=== PATIENT | female | born 1965 | race Caucasian/White ===

== ENCOUNTER 2017-05-20 10:50 | Inpatient (IN) ==
[2017-05-20] MEDS ORDERED: MORPHINE IV PRN (14:26)
[2017-05-20] MEDS: NS 1,000 ML IV SCH (14:49)
[2017-05-20] MEDS ORDERED: VANCOMYCIN IV PER PHARMACY MISC SCH (15:00)
[2017-05-20] MEDS ORDERED: DECADRON IV SCH (15:15)
--- NOTE | 2017-05-20 15:38 | HISTORY AND PHYSICAL ---
PCP: Dr. Karina Mckinney. ORAL SURGEON: Dr. Simmons. CHIEF COMPLAINT: Jaw swelling. HISTORY OF PRESENT ILLNESS: Mrs. Fischer is a 52-year-old female with a history of chronic bronchitis and fibromyalgia, also with a history of a borderline diabetes mellitus who is sent from [facility] with profound left mandibular swelling. The patient had a tooth extraction done by Dr. Simmons on Sunday, she was given antibiotics and pain medication and sent home. Since that time though left lower jaw has been swelling significantly with severe pain. The patient called Dr. Simmons's office apparently and was told to stopped taking the medication as it could be felt that there was an allergic reaction to the medication. She went to [facility] this morning and a call was put in to us to transfer her to our facility because of the severity of the swelling. A CT done there did not show any abscess however this was a noncontrasted CT. When the patient arrived to [facility] it was quite obvious that she had profound edema of the left lower jaw and she was beginning to complain of some mild shortness of breath. History is difficult to obtain because of the patient's level of swelling in her jaw. Her family at the bedside is able to help with history. We have ordered stat labs and we are going to check a CT of the head and neck with contrast to evaluate for abscess. We have put a call into Dr. Simmons's office as he is vision specialist for oral surgery today. We are also going to transfer her to the ICU and place her on IV steroids for inflammation reduction. Currently she is hemodynamically stable and we are going to transfer her to the ER for further treatment and evaluation. PAST MEDICAL HISTORY: 1. Recent tooth extraction. 2. Chronic bronchitis. 3. Morbid obesity. 4. History of breast cancer. 5. Hyperlipidemia. 6. Borderline diabetes. 7. Fibromyalgia. SURGICAL HISTORY: Recent tooth extraction, left mastectomy, tonsils and adenoids, eustachian tubes as child. SOCIAL HISTORY: Patient denies tobacco, alcohol or drug use. She is . at the bedside. FAMILY HISTORY: Noncontributory. REVIEW OF SYSTEMS: Difficult to obtain. The patient denies at this time any chest pain, any abdominal pain, nausea, vomiting, or diarrhea. Otherwise a 14 point review of systems obtained and found to be negative with the exception of the HPI. HOME MEDICATIONS: Currently being compiled. ALLERGIES: To azithromycin, clarithromycin, doxycycline, Medrol, sulfa, amoxicillin, Augmentin, plastic Band-Aid. We asked her about her allergy to Medrol. She said she does not really have an allergy to steroids. She is unclear why that is on the list. PHYSICAL EXAMINATION: VITAL SIGNS: Blood pressure is 122/39, heart rate is 84, respiratory rate 20, O2 saturation 100% on room air, temperature is 98.7 degrees. GENERAL: Morbidly obese female lying in hospital bed in mild distress. NEUROLOGIC: The patient is oriented and follows commands without focal deficits. HEENT: Patient has profound edema of the left lower jaw. There is also ecchymoses noted about the jaw. Oral mucosa is moist and overall oral airway is difficult to assess as patient cannot open her mouth. Pupils are equal, round, reactive to light. CHEST: Clear to auscultation bilaterally. There is no wheezing. CV: Regular rate and rhythm. S1-S2 is noted. No murmurs. GI: Soft, nondistended. Bowel sounds are hypoactive. EXTREMITIES: Without edema, clubbing or cyanosis. Pulses are palpable bilaterally. DIAGNOSTIC DATA: Pending. ASSESSMENT/PLAN: 1. Presumed abscess of the left mandible status post tooth extraction: We are going to re CT the patient with contrast. Will order face and neck. We are going to give her IV steroids and broad-spectrum antibiotics including meropenem and vancomycin. Will consult Dr. Lucas as well. We are going to move her the ICU for close airway monitoring. We have also ordered blood cultures and comprehensive lab studies. Will check a chest x-ray as well. 2. Bronchitis: Patient's lungs are clear. Ordered a chest x-ray. We are going to put her on O2 and monitor. 3. Borderline diabetes mellitus: We are going to check a hemoglobin A1c and put her on sliding scale insulin and pattern blood sugars. 4. Deep vein thrombosis prophylaxis will be provided with SCDs and TEDs given the possibility of surgery. Of note, we have placed a call to Dr. Simmons's office and are awaiting a call back. Dictated by CNOY Sanchez for Marta Tucker MD cc: CONY Sanchez MD The patient was seen and examined by me. I agree with the assessment and plan as dictated. MTDD
[2017-05-20 15:44] LABS: BASO% 0.3 % (0.0-0.8); HEMATOCRIT 38.4 % (37.0-47.0); HEMOGLOBIN 12.5 g/dL (12.0-16.0); IMM GRAN# 0.04 X1000 (0.0-0.04); IMM GRAN% 0.3 % (0.0-0.5); LYMPH# 0.66 X1000 (1.2-3.4); LYMPH% 5.6 % (20.5-51.1); MANUAL DIFF NEEDED? NO; MCH 27.7 PG (27-31); MCHC 32.6 g/dL (33-37); MONO# 0.96 X1000 (0.11-0.59); MONO% 8.2 % (1.7-9.3); MPV 12.3 FL (7.4-10.4); NEUT% 85.6 % (42.2-75.2); PLT 147 X1000 (130-400); RBC 4.52 XMIL (4.2-5.4)
[2017-05-20 15:53] LABS: INR 1.03; PROTIME 10.8 Seconds (9.2-11.7)
[2017-05-20 16:06] LABS: AGAP 13; ALBUMIN 3.6 g/dL (3.5-5.0); ALKALINE PHOSPHATASE 84 U/L (32-104); BUN 13 mg/dL (8-22); CALCIUM 8.7 mg/dL (8.8-10.2); CHLORIDE 102 mmol/L (98-107); COSMO 279; GOT 16 U/L (10-30); GPT 13 U/L (10-36); MAGNESIUM 1.9 mg/dL (1.5-2.7); SODIUM 140 mmol/L (136-145); TCO2 25 mmol/L (25-35); TOTAL BILIRUBIN 0.36 mg/dL (0.20-1.00); TOTAL PROTEIN 6.4 g/dL (6.3-8.3)
[2017-05-20] MEDS: HUMALOG SUBQ SCH ×2 (16:07→21:39)
[2017-05-20] MEDS ORDERED: ZOFRAN IV PRN (16:09)
[2017-05-20 16:34] LABS: HEMOGLOBIN A1C 5.5 % (4.8-6.0)
--- NOTE | 2017-05-20 17:05 | Diag Imaging Result Doc PS360 ---
EXAM: FACIAL BONES W/CONTRAST HISTORY: facial cellulitis TECHNIQUE: CT face with contrast. COMPARISON: None. FINDINGS: No sinus opacification. No air-fluid levels. There is prominent left facial soft tissue swelling. Enlarged left masseter muscle with a poorly defined complex area measuring approximately 2.3 x 4.0 cm. No air within this. Subcutaneous edema is present. No bony abnormality. There is also prominence to the medial pterygoid muscle. Oral pharyngeal region is deviated to the right. There are multiple prominent lymph nodes scattered in the neck on the left with mildly prominent lymph nodes on the right. The largest node lies just beneath the left mandible measuring over 2 cm. IMPRESSION: Suspect cellulitis and early abscess formation involving the medial pterygoid and masseter muscles on the left. Electronically signed by Agustin Hampton 05/20/2017 5:02 PM
--- NOTE | 2017-05-20 17:07 | Diag Imaging Result Doc PS360 ---
EXAM: NECK W/CONTRAST HISTORY: facial cellulitis TECHNIQUE: COMPARISON: None. FINDINGS: There is enlargement to the left masseter muscle and medial pterygoid muscle. The airway is displaced to the right. Prominent subcutaneous edema and inflammation. Poorly defined multiloculated cystic-appearing area within the left masseter muscle measuring approximately 2 x 4 cm. Edema and deviation of the airway to the right extends inferiorly to the level of the hyoid. There are multiple mildly prominent lymph nodes scattered bilaterally within the neck. No definite laryngeal abnormality. Normal thyroid. The upper lungs are clear. IMPRESSION: Findings suspicious for cellulitis and early abscess formation involving the left masseter and medial pterygoid muscles. Electronically signed by Agustin Hampton 05/20/2017 5:05 PM
--- NOTE | 2017-05-20 17:08 | Diag Imaging Result Doc PS360 ---
EXAM: CHEST-2 VIEWS HISTORY: hypoxia TECHNIQUE: Sitting AP COMPARISON: 08/05/2015 FINDINGS: The lungs are well expanded. The heart is not enlarged. The vessels are not distended. There are no infiltrates. No pleural effusions. IMPRESSION: No acute abnormality. Electronically signed by Agustin Hampton 05/20/2017 5:06 PM
[2017-05-20] MEDS: MERREM 1 GM in NS 50 ML IV SCH ×2 (17:11→23:58)
[2017-05-20] MEDS ORDERED: VANCOMYCIN 2,000 MG in NS 500 ML IV ONE (18:00)
[2017-05-20] MEDS: DILAUDID IV PRN ×2 (18:23→21:47)
[2017-05-20] MEDS: BENADRYL IV SCH (19:42)
[2017-05-20] MEDS: PEPCID IV SCH (21:47)
[2017-05-20] MEDS: SODIUM CHLORIDE 0.9% INJ SCH (21:47)
[2017-05-20] MEDS: DECADRON IV SCH (22:15)
[2017-05-21] MEDS: DILAUDID IV PRN ×6 (01:24→21:12)
[2017-05-21] MEDS: BENADRYL IV SCH ×3 (02:32→18:07)
[2017-05-21] MEDS: NS 1,000 ML IV SCH ×2 (02:33→06:05)
[2017-05-21 04:40] LABS: HEMATOCRIT 34.6 % (37.0-47.0); HEMOGLOBIN 11.2 g/dL (12.0-16.0); MCH 27.7 PG (27-31); MCHC 32.4 g/dL (33-37); MCV 85.6 FL (81-99); MPV 12.5 FL (7.4-10.4); RBC 4.04 XMIL (4.2-5.4)
[2017-05-21] MEDS: VANCOMYCIN 1,500 MG in NS 250 ML IV SCH ×2 (04:59→17:27)
[2017-05-21 05:09] LABS: AGAP 15; BUN 10 mg/dL (8-22); CALCIUM 8.1 mg/dL (8.8-10.2); CHLORIDE 100 mmol/L (98-107); COSMO 276; POTASSIUM 4.3 mmol/L (3.5-5.1); SODIUM 138 mmol/L (136-145); TCO2 23 mmol/L (25-35)
[2017-05-21] MEDS: DECADRON IV SCH ×3 (06:05→23:11)
[2017-05-21] MEDS: HUMALOG SUBQ SCH ×4 (06:14→20:06)
[2017-05-21] MEDS: MERREM 1 GM in NS 50 ML IV SCH ×3 (07:45→23:11)
[2017-05-21] MEDS: PEPCID IV SCH ×3 (07:54→20:10)
[2017-05-21] MEDS ORDERED: FENTANYL ONE (11:59)
[2017-05-21] MEDS ORDERED: DIPRIVAN 1% ONE (12:00)
[2017-05-21] MEDS ORDERED: XYLOCAINE-MPF 2% ONE (12:02)
[2017-05-21] MEDS ORDERED: QUELICIN (DOSE) ONE (12:02)
[2017-05-21] MEDS ORDERED: NORCURON ONE (12:02)
[2017-05-21] MEDS ORDERED: SODIUM CHLORIDE 0.9% 10 ML ONE ×2 (12:02→12:20)
[2017-05-21] MEDS ORDERED: PERIDEX MT ONE (12:15)
[2017-05-21] MEDS ORDERED: KETAMINE (DOSE) ONE (12:17)
[2017-05-21] MEDS ORDERED: VERSED ONE (12:17)
[2017-05-21] MEDS ORDERED: XYLOCAINE 1%/EPI 1:100,000 ONE (12:40)
[2017-05-21] MEDS ORDERED: MORPHINE ONE ×3 (13:16→13:49)
--- NOTE | 2017-05-21 16:41 | CONSULTATION ---
DATE OF CONSULTATION: 05/21/2017 CONCLUSION: Patient has a left-sided facial abscess and cellulitis. It seems that this is of odontogenic origin. The patient has, she says, allergy to Augmentin. Her allergy was vomiting and thus I think it probably was not actually an allergy as more as just an adverse reaction. RECOMMENDATIONS: I agree with placing the patient on meropenem in view of the patient's mini drug allergies. Also I agree with vancomycin. DISCUSSION: The patient approximately 6 days ago started developing swelling on the left side of her face. She also noticed it in the lower part of her jaw. She also developed trismus and she can barely get her mouth open. Also she has difficulty swallowing because she says is difficult for her to get even liquids down. LAB AND X-RAY: The patient's laboratory studies thus far show a CBC with a white count of 11,430, hemoglobin 11.2, and platelet count 132,000. Creatinine is 0.5. The GFR is greater than 60. The patient's chest x-ray shows no acute disease. CT scan of the face shows cellulitis and abscess formation on the left side. PAST MEDICAL HISTORY/REVIEW OF SYSTEMS: Eyes and ears: Patient denies difficulty hearing or seeing. Patient wears glasses. She does not have any trouble with hearing. The patient also has odynophagia. She also has a trismus. Face: The patient has swelling and pain on the left side. Also, she has trismus. Neck: No meningismus. No stiffness. Respiratory: Patient has been having some dyspnea for the past couple of days. She is not coughing. Cardiovascular: No chest pain or palpitations. GI: Patient has not had a stool in 2 days which is not real unusual for her. : No dysuria or flank pain. Bones, joints, muscles: No joint pain or muscle aches. Neurologic: No motor or sensory deficit. No seizure. No tremor. Integument: No rash. PHYSICAL EXAMINATION: Vital signs: Temperature 96.9 degrees, pulse 72, respirations 16, blood pressure 120/47. The patient's weight is listed as 247 pounds. Generally: This is an ill- appearing, middle-aged female. She does not appear to be in any acute distress. Head, eyes, ears, nose, and throat: There is marked swelling on the left side of her face. It is tender. She has trismus. No drainage noted from the nose or ears. Neck: No meningismus. Thorax: No increased AP diameter of the chest. Lungs: Clear to auscultation. Cardiovascular: Regular heart rate. Abdomen: Soft and nontender. Extremities: The patient has bilateral leg edema. Neurologic: Patient is alert. She can move her extremities. There is no tremor. Her sensation is intact to touch. Her memory, as regarding her medical history is intact. Integument: No rash noted. Thank you for the consult. cc: Nixon Lucas MD MTDD
--- NOTE | 2017-05-21 18:33 | PROGRESS NOTE ---
DATE: 05/21/2017 SUBJECTIVE: The patient is resting comfortably. She still has some facial swelling on the left side of her face but she is able to talk and open her mouth and she states that her breathing is better. OBJECTIVE: Vital Signs: Temperature 98.6 degrees, blood pressure 142/74, heart rate 65, respirations 24, O2 saturation is 100% on 4 L nasal cannula. General: This is a morbidly obese female, lying in bed, in no acute distress. Head: Normocephalic, atraumatic. Heart: S1, S2. Normal. Regular rate and rhythm. Lungs: Clear to auscultation bilaterally. No wheezing. No rales. No rhonchi. Abdomen: Positive bowel sounds. Soft, nontender, nondistended. Extremities: No edema. No cyanosis. No calf tenderness. Neurologic: The patient is alert and oriented x3. LABORATORY STUDIES: White blood cell count 11.4, hemoglobin 11, hematocrit 34, platelets 132,000. Sodium 138, potassium 4.3, chloride 100, CO2 23, BUN 10, creatinine 0.5, glucose 118, calcium 8.1. ASSESSMENT AND PLAN: 1. Facial cellulitis with abscess. The patient is scheduled to go to the OR today. Continue with broad-spectrum antibiotics, IV steroids, IV Pepcid, and IV Benadryl. 2. Leukocytosis. We will continue to treat the patient with IV antibiotic therapy monitor this closely. 3. Neuropathy. Aware. 4. Deep vein thrombosis prophylaxis. Continue with SCDs. 5. Gastrointestinal prophylaxis. Continue with Pepcid. cc: Marta Tucker MD
[2017-05-21] MEDS ORDERED: FLEBOGAMMA DIF 5% IV ONE (20:00)
[2017-05-22] MEDS: DILAUDID IV PRN ×4 (00:27→15:48)
[2017-05-22] MEDS: BENADRYL IV SCH ×3 (02:31→17:47)
[2017-05-22] MEDS: VANCOMYCIN 1,500 MG in NS 250 ML IV SCH ×2 (05:15→20:05)
[2017-05-22 05:28] LABS: HEMATOCRIT 33.1 % (37.0-47.0); HEMOGLOBIN 10.6 g/dL (12.0-16.0); MCH 27.2 PG (27-31); MCV 84.9 FL (81-99); MPV 12.4 FL (7.4-10.4); RBC 3.9 XMIL (4.2-5.4)
[2017-05-22 05:47] LABS: AGAP 9; BUN 15 mg/dL (8-22); CALCIUM 8.4 mg/dL (8.8-10.2); CHLORIDE 100 mmol/L (98-107); COSMO 273; POTASSIUM 4.2 mmol/L (3.5-5.1); SODIUM 135 mmol/L (136-145); TCO2 26 mmol/L (25-35)
[2017-05-22] MEDS: DECADRON IV SCH ×2 (06:03→18:44)
--- NOTE | 2017-05-22 06:12 | CONSULTATION ---
DATE OF CONSULTATION: 05/20/2017 REASON FOR CONSULTATION: Left facial abscess. HISTORY OF PRESENT ILLNESS: Ms. Fischer is a 52-year-old female, who was referred to my office on 05/18/2017 for evaluation of left facial abscess. She notes she has had the pain and swelling for approximately a week prior. It had been increasing in severity. She was seen at [facility] and prescribed antibiotics. She subsequently saw her general dentist, Dr. Harding, which referred her to me. At the time of the office visit, she had some mild left edema with slight erythema overlying the skin. There was no submandibular erythema or edema. Tooth #18 was with nonrestorable caries. Oropharynx was clear at that time with no lateral pharyngeal erythema or edema. She was subsequently sedated in my office with extraction #18 without complications. At that time, she was prescribed [place] and clindamycin 300 mg q.i.d. Over the next 2 days, she notes that the left facial pain and swelling subsequently increased, and she started developing some odynophagia with shortness of breath. She was subsequently seen at [facility] ED of which a CT scan was taken and showed a 2 x 4 mm fluid collection of a left masseteric space. At that time, she was admitted for IV antibiotics and further evaluation. PAST MEDICAL HISTORY: See history. PHYSICAL EXAMINATION: Facial examination with significant left buccal erythema and edema which has increased significantly over the past 2 days. The erythema is spreading to the submandibular region. There is significant tenderness to palpation. Intraorally, maximal incisal opening is approximately 5 mm. The oropharynx was unable to be examined secondary to trismus. ASSESSMENT: Left masseteric space abscess. PLAN: 1. To OR tomorrow for incision and drainage, left masseteric space abscess. 2. Patient was started on IV meropenem and vancomycin. cc: MD AUDREY Singletary
[2017-05-22] MEDS: HUMALOG SUBQ SCH ×4 (06:23→20:04)
--- NOTE | 2017-05-22 06:43 | OPERATIVE NOTE ---
PROCEDURE DATE: 05/21/2017 DIAGNOSIS: Left masseteric space abscess. PROCEDURE PERFORMED: Incision and drainage of left masseteric space abscess. SURGEON: Dr. Alton Simmons. ANESTHESIA: General endotracheal anesthesia. ESTIMATED BLOOD LOSS: 10 mL. CULTURES: Pending. COMPLICATIONS: None. DESCRIPTION OF PROCEDURE: Patient was taken to OR #9 and placed in the supine position. General anesthesia was induced with LMA. Patient was prepped and draped in the usual sterile fashion. Local anesthesia was administered to the submandibular region on the left side with 7 mL of 1% Xylocaine with 1:100,000 epinephrine. A 15 blade was then used to create an approximate 2 cm skin incision in a left submandibular skin crease. Incision carried through the skin and subcutaneous tissues. Hemostats were then bluntly used to dissect to the inferior border of the mandible. There was a significant loculation of purulence which was encountered. It was subsequently drained. The lateral and inferior borders of the mandible were swept. The incision site was then copiously irrigated with sterile saline. Cultures were taken. A 0.5 inch [place] was then inserted and secured to the skin with two 3-0 silk sutures. Then 4x4s were taped to the incision. The patient was subsequently awakened and extubated in the OR, and transferred to recovery in stable condition. All needle and sponge counts were correct. cc: Alton Simmons MD
[2017-05-22] MEDS: MERREM 1 GM in NS 50 ML IV SCH ×2 (07:34→15:50)
[2017-05-22] MEDS: PEPCID IV SCH ×2 (08:04→20:05)
--- NOTE | 2017-05-22 08:26 | CONSULTATION ---
DATE OF CONSULTATION: 05/21/2017 ADDENDUM: BUDGET COUNSELOR HISTORY: The patient is a 1, para 1, AB 0. PREVIOUS HOSPITALIZATIONS AND OPERATIONS: She has had a labor and delivery, a tonsillectomy, placement of ear tubes, a left-sided mastectomy, and a tubal ligation. MEDICAL DISEASES: Positive for breast cancer. INFECTIOUS DISEASE HISTORY: Negative for pneumonia and UTI, positive for bronchitis and otitis media. FAMILY HISTORY: Positive for diabetes mellitus, hypertension, stroke, myocardial infarction, and cancer. [place]IAL H[place]ORY[place] She has a cat, a dog, and goats for pets. ALLERGIES: She is allergic to azithromycin, clarithromycin, doxycycline, Medrol , sulfa, Augmentin, and plastic Band-Aids. HOME MEDICATIONS: Include Colace, lactobacillus, gabapentin, famotidine, BuSpar , thymol, meloxicam, Antivert, hydrocodone, Flexeril, and loratadine. cc: Nixon Lucas MD MTDD
[2017-05-22] MEDS: LOVENOX SUBQ SCH (17:47)
[2017-05-22] MEDS: SODIUM CHLORIDE 0.9% INJ SCH (20:06)
--- NOTE | 2017-05-22 21:42 | PROGRESS NOTE ---
DATE: 05/22/2017 PRESENT ILLNESS: The patient is status post left masseter space abscess incision and drainage. In addition to the to the infection, the patient has hypogammaglobulinemia. MEDICATIONS: The patient is receiving a combination of vancomycin and meropenem. PHYSICAL EXAMINATION: Vital Signs: Temperature is 98.6 degrees, pulse 69, respirations 18, blood pressure 132/66. General: This is a less ill-appearing middle-aged female. She is able to talk better today. She can open up her mouth better and she is able to tolerate liquids by mouth. Lungs: Clear to auscultation. Cardiovascular: Regular heart rate. Abdomen: Soft and nontender. Head, eyes, ears, nose, and throat: There is less swelling on the left side of the face. LAB AND X-RAY: There is no new x-ray. The creatinine is 0.5. GFR is greater than 60. The blood and abscess cultures are negative as mentioned above. CBC shows a white count of 10,760, hemoglobin 10.6, and platelet count 163,000. ASSESSMENT AND PLAN: Patient is status post drainage of a left masseter space abscess. The plan will be to continue with the patient's antibiotics until there is even less swelling and also there is less trismus. The patient also has been discovered to have a low IgG level. In a day or 2 I will repeat the level and if it is still very low I will give her another infusion of gammaglobulin. After the patient gets home in a few months I will repeat the patient's immunoglobulin levels and if they are still low then I think she may be a candidate for gammaglobulin infusion therapy on regular basis. COMORBIDITIES: The main one might be that she has hypogammaglobulinemia. She also has recently had breast cancer. cc: Nixon Lucas MD
[2017-05-23] MEDS: MERREM 1 GM in NS 50 ML IV SCH ×3 (00:32→16:16)
[2017-05-23] MEDS: BENADRYL IV SCH ×2 (02:27→11:02)
--- NOTE | 2017-05-23 03:44 | PROGRESS NOTE ---
DATE: 05/22/2017 SUBJECTIVE: The patient states that she feels a lot better today. She has less swelling on the left side of her face. She states that her pain is controlled. OBJECTIVE: Vital Signs: Temperature 98.6 degrees, blood pressure 132/66, heart rate 69, respirations 18, O2 saturations 94% on 3 L nasal cannula. General: This is a morbidly obese female lying in bed in no acute distress. Head: Normocephalic, atraumatic. Heart: S1, S2. Normal. Regular rate and rhythm. Lungs: Clear to auscultation bilaterally. Abdomen: Positive bowel sounds. Soft, nontender, nondistended. Extremities: No edema. No cyanosis. No calf tenderness. Neurologic: The patient is alert and oriented x3. LABS: White blood cell count 10, hemoglobin 10, hematocrit 33, platelets 163, 000. Sodium 135, potassium 4.2, chloride 100, CO2 26, BUN 15, creatinine 0.5, glucose 127, calcium 8.4. ASSESSMENT AND PLAN: 1. Status post incision and drainage of a left masseteric space abscess. Continue on the IV antibiotic regimen as directed by Dr. Lucas. Will follow up on the culture results. 2. Leukocytosis. Resolved. 3. Deep vein thrombosis prophylaxis. Will start the patient on Lovenox. 4. The patient is stable for transfer to the medical floor. cc: Marta Tucker MD MTDD
[2017-05-23 06:01] LABS: HEMATOCRIT 34.7 % (37.0-47.0); HEMOGLOBIN 11.2 g/dL (12.0-16.0); MCHC 32.3 g/dL (33-37); MCV 86.8 FL (81-99); MPV 12.3 FL (7.4-10.4)
[2017-05-23] MEDS: VANCOMYCIN 1,500 MG in NS 250 ML IV SCH ×2 (06:07→18:33)
[2017-05-23] MEDS: DECADRON IV SCH (06:07)
[2017-05-23] MEDS: HUMALOG SUBQ SCH ×4 (06:08→20:50)
[2017-05-23 06:30] LABS: AGAP 12; BUN 14 mg/dL (8-22); CALCIUM 8.3 mg/dL (8.8-10.2); CHLORIDE 102 mmol/L (98-107); COSMO 282; SODIUM 141 mmol/L (136-145); TCO2 27 mmol/L (25-35)
[2017-05-23] MEDS: PEPCID IV SCH ×2 (08:04→21:03)
[2017-05-23] MEDS: CULTURELLE PO SCH (08:05)
[2017-05-23] MEDS: SODIUM CHLORIDE 0.9% INJ SCH (08:05)
--- NOTE | 2017-05-23 12:57 | PROGRESS NOTE ---
DATE: 05/23/2017 INTERVAL HISTORY: Patient has been transferred to the floor and resting comfortably. Her pain is well controlled. She is tolerating a liquid diet. She is currently without complaints. PHYSICAL EXAMINATION: Vital signs: Afebrile. Vital signs stable. HEENT: Left buccal submandibular edema is continuing to decrease and become softer. Her trismus is improving. The left submandibular [place] with mild serosanguineous drainage. DATA: White blood cell count 9. Cultures are without growth at 48 hours. ASSESSMENT: Improving left masseteric space abscess status post incision and drainage. PLAN: 1. Patient is continuing to improve status post left masseteric space incision and drainage. It is okay from my standpoint if the patient is discharged in the next day or so. She will follow up with me as an outpatient on Sunday for Spring drain removal. 2. Antibiotic and gammaglobulin management is being managed by Dr. Lucas. cc: Alton Simmons MD
--- NOTE | 2017-05-23 14:30 | PROGRESS NOTE ---
DATE: 05/23/2017 SUBJECTIVE: The patient is resting comfortably in bed. She states she feels a lot better. The swelling on the left side of her cheek has decreased in size. OBJECTIVE: Vital Signs: Temperature 98.6 degrees, blood pressure 126/58, heart rate 63, respirations 16, and O2 saturation is 100% on room air. General: This is an elderly female, sitting up in bed in no acute distress. Head: Normocephalic. Atraumatic. The patient has decreased swelling in the left side of her cheek and left neck region. Heart: S1 and S2 normal. Regular rate and rhythm. Lungs: Clear to auscultation bilaterally. No crackles. No rales. Abdomen: Positive bowel sounds. Soft, nontender, nondistended. Extremities: No edema. No cyanosis. No calf tenderness. Neurologic: The patient is alert and oriented x3. LABORATORY: White blood cell count 9, hemoglobin 11, hematocrit 34, and platelets 194,000. Sodium 141, potassium 4, chloride 102, CO2 of 27, BUN 14, creatinine 0.5, glucose 104, magnesium 2.1. ASSESSMENT AND PLAN: 1. Status post incision and drainage of a left masseteric space abscess. Continue on IV antibiotic therapy. The culture is growing Gram-positive cocci. Further management as per Dr. Lucas. 2. Morbid obesity. Aware. 3. Neuropathy. Stable. 4. Deep vein thrombosis prophylaxis. Continue on Lovenox. cc: Marta Tucker MD
[2017-05-23 16:12] LABS: INR 1.04
[2017-05-23] MEDS: LOVENOX SUBQ SCH ×2 (16:24→18:33)
--- NOTE | 2017-05-23 17:37 | PROGRESS NOTE ---
DATE: 05/23/2017 PRESENT ILLNESS: The patient is status post drainage of a left facial abscess. The swelling is less although the left side of her face still is indurated. Her trismus also is better. The patient also has hypogammaglobulinemia. MEDICATIONS: Patient currently is receiving vancomycin and meropenem. PHYSICAL EXAMINATION: Vital Signs: Temperature is 98.5 degrees, pulse 67, respirations 20, blood pressure 122/58. Generally: This is a less ill-appearing, middle-aged female. As mentioned above the swelling is less. The induration still is present and her trismus is better. Lungs: Clear to auscultation. Cardiovascular: Regular heart rate. Abdomen: Soft and nontender. LAB AND X-RAY: There is no new x-ray. The CBC for today shows a white count of 9050, hemoglobin 11.2, and platelet count 194,000. Creatinine is 0.5. GFR is greater than 60. The patient had a low IgG at 341 and her IgA was normal of 128. The patient's wound on her face is growing a gram- positive coccus which is not yet identified. ASSESSMENT AND PLAN: The patient has is status post drainage of a left flower grader space abscess. I am going to continue with her current antibiotics. I am going to repeat her immunoglobulin levels. Also, I am requesting that a PICC be placed. The culture from the wound is growing a gram-positive coccus and hopefully we can get the patient on a single antibiotic. I am going to repeat the immunoglobulin levels. Patient's comorbidities, she has hypogammaglobulinemia. She also recently had breast cancer. cc: Nixon Lucas MD
[2017-05-23] MEDS: DILAUDID IV PRN (21:09)
[2017-05-24] MEDS: DILAUDID IV PRN ×6 (00:07→22:12)
[2017-05-24] MEDS: VANCOMYCIN 1,500 MG in NS 250 ML IV SCH ×2 (05:48→17:01)
[2017-05-24 06:30] LABS: AGAP 11; BUN 14 mg/dL (8-22); CALCIUM 8.8 mg/dL (8.8-10.2); CHLORIDE 104 mmol/L (98-107); COSMO 279; POTASSIUM 3.9 mmol/L (3.5-5.1); SODIUM 140 mmol/L (136-145); TCO2 25 mmol/L (25-35)
[2017-05-24 06:53] LABS: EOS# 0.07 X1000 (0.0-0.7); EOS% 0.9 % (0.0-10.0); HEMATOCRIT 38.1 % (37.0-47.0); HEMOGLOBIN 12.2 g/dL (12.0-16.0); IMM GRAN# 0.38 X1000 (0.0-0.04); IMM GRAN% 4.8 % (0.0-0.5); LYMPH# 1.77 X1000 (1.2-3.4); LYMPH% 22.2 % (20.5-51.1); MANUAL DIFF NEEDED? YES; MCH 27.7 PG (27-31); MCV 86.6 FL (81-99); MONO# 0.83 X1000 (0.11-0.59); MONO% 10.4 % (1.7-9.3); MPV 11.8 FL (7.4-10.4); NEUT% 60.7 % (42.2-75.2); PLT 210 X1000 (130-400)
[2017-05-24] MEDS: HUMALOG SUBQ SCH ×4 (07:43→20:47)
[2017-05-24] MEDS: CULTURELLE PO SCH ×2 (07:44→10:41)
[2017-05-24] MEDS: PEPCID IV SCH ×3 (07:44→21:29)
[2017-05-24] MEDS: MERREM 1 GM in NS 50 ML IV SCH ×5 (07:45→23:01)
[2017-05-24 08:49] LABS: LYMPHS 27 % (21-51); MONO 8 % (1-9); NRBC 1 % (0-0)
[2017-05-24] MEDS ORDERED: NS 250 ML ONE (09:08)
--- NOTE | 2017-05-24 12:58 | PROGRESS NOTE ---
DATE: 05/24/2017 PRESENT ILLNESS: The patient is status post surgery for a left facial abscess. A culture from the abscess is growing a gram-positive coccus. The patient also has hypogammaglobulinemia. MEDICATIONS: Patient is on a combination of vancomycin and meropenem. PHYSICAL EXAMINATION: Vital Signs: Temperature is 98.3 degrees, pulse 51, respirations 16 and blood pressure 107/56. General: This is an obese, middle-aged female. She is in no acute distress. Head, eyes, ears, nose, and throat: The patient feels today that the left side of her face is a little more swollen than it was yesterday. She may be right. Overall it is less swollen than it was before surgery. It is still indurated. The patient still has trismus, but she can open her mouth a little bit more than she could before surgery. Lungs: Clear to auscultation. Cardiovascular: Heart rate is regular. Abdomen: Soft and nontender. Extremities: On the patient's toe there is a small lesion that looks like a very small abscess. The patient states that when she soaks it in water that pus comes out. She says that she has had this for years. LAB AND X-RAY: Immunoglobulin levels were ordered; they should be back either today or tomorrow. CBC shows a white count of 7960, hemoglobin 12.2, and platelet count 210,000. Creatinine 0.5. GFR is greater than 60. As mentioned above, a culture taken from the patient's abscess is growing gram-positive cocci. ASSESSMENT AND PLAN: For now, I am going to continue the patient's current antibiotics. Also, I have repeated her immunoglobulin levels and, if the IgG is still very low, I will give her another dose of immunoglobulin replacement therapy. As for the area on her toe, I think at this time I am going to hold off on doing anything. The toe is not red and it is not bothering the patient for right now. COMORBIDITIES: The patient's comorbidities include hypogammaglobulinemia and breast cancer. cc: Nixon Lucas MD
[2017-05-24] MEDS: LOVENOX SUBQ SCH (17:01)
--- NOTE | 2017-05-24 17:58 | PROGRESS NOTE ---
DATE: 05/24/2017 SUBJECTIVE: This patient is resting comfortably in bed. She feels better, but she is still having swelling on the left side of her cheek. She states that she is feeling some draining inside her mouth and also there is some draining outside where the incision is. She has some discomfort at the level of her throat and left ear. OBJECTIVE: Vital Signs: Temperature 98 degrees, pulse 67, respiratory rate 20, blood pressure 105/51, oxygen saturation 96% on room. HEENT: Head normocephalic. No trauma. PERRLA. Poor dentition. There is swelling in the left side of her cheek and left neck region with purulent rate drainage. Cardiovascular: Regular rhythm and rate. Lungs: Clear to auscultation. No wheezing. No rales. Abdomen: Soft, nontender, nondistended. No hepatosplenomegaly. Extremities: No edema. No clubbing. No cyanosis. Neurological: The patient is alert and oriented x3. No focal neurological deficits. LABORATORY: WBC 7.9, hemoglobin 12.2, hematocrit 38.1, platelets 210,000. Sodium 140, potassium 3.9, chloride 104, bicarbonate 25, BUN 14, creatinine 0.5, glucose 82, calcium 8.8. ASSESSMENT AND PLAN: 1. Left masseteric space abscess, status post incision and drainage. Continue with IV antibiotics as per Dr. Lucas, culture has shown gram-positive cocci. We will continue to monitor and treatment. 2. Morbid obesity. Aware. 3. Hypogammaglobulinemia. Dr. Lucas from Infectious Disease Department will give immunoglobulin therapy. 4. Neuropathy, stable. 5. Deep vein thrombosis prophylaxis. Continue with Lovenox. cc: Luiz Meade MD
[2017-05-24] MEDS: SODIUM CHLORIDE 0.9% INJ SCH (21:29)
[2017-05-25] MEDS: DILAUDID IV PRN ×5 (03:15→21:12)
[2017-05-25] MEDS: VANCOMYCIN 1,500 MG in NS 250 ML IV SCH ×2 (05:17→17:48)
[2017-05-25 05:50] LABS: BASO% 0.4 % (0.0-0.8); EOS# 0.18 X1000 (0.0-0.7); EOS% 2.6 % (0.0-10.0); HEMATOCRIT 37.2 % (37.0-47.0); IMM GRAN# 0.37 X1000 (0.0-0.04); IMM GRAN% 5.4 % (0.0-0.5); LYMPH# 1.46 X1000 (1.2-3.4); LYMPH% 21.3 % (20.5-51.1); MANUAL DIFF NEEDED? YES; MCH 27.5 PG (27-31); MCHC 32.3 g/dL (33-37); MCV 85.3 FL (81-99); MONO# 0.69 X1000 (0.11-0.59); MONO% 10.1 % (1.7-9.3); MPV 11.7 FL (7.4-10.4); NEUT% 60.2 % (42.2-75.2); PLT 242 X1000 (130-400); RBC 4.36 XMIL (4.2-5.4)
[2017-05-25 06:02] LABS: AGAP 12; BUN 9 mg/dL (8-22); CALCIUM 8.8 mg/dL (8.8-10.2); CHLORIDE 98 mmol/L (98-107); COSMO 274; POTASSIUM 3.8 mmol/L (3.5-5.1); SODIUM 138 mmol/L (136-145); TCO2 28 mmol/L (25-35)
[2017-05-25] MEDS: HUMALOG SUBQ SCH ×4 (06:12→21:13)
[2017-05-25 06:53] LABS: EOS 4 % (1-10); LYMPHS 10 % (21-51); MONO 4 % (1-9)
[2017-05-25] MEDS: CULTURELLE PO SCH (09:21)
[2017-05-25] MEDS: MERREM 1 GM in NS 50 ML IV SCH ×3 (09:21→23:43)
[2017-05-25] MEDS: PEPCID IV SCH ×2 (10:03→21:13)
[2017-05-25] MEDS: SODIUM CHLORIDE 0.9% INJ SCH (10:03)
[2017-05-25] MEDS: MYCOSTATIN SUSP PO SCH ×3 (14:18→21:13)
--- NOTE | 2017-05-25 15:24 | PROGRESS NOTE ---
DATE: 05/25/2017 SUBJECTIVE: This patient is resting comfortably in bed. She feels better. She is still having swelling on the left side of her cheek. She is still feeling some draining coming out from her mouth and also outside, she has a drain. She has discomfort at the level of her throat and her left ear. OBJECTIVE: Vital Signs: Temperature 98 degrees, pulse 83, respiratory rate 18, blood pressure 152/88, O2 saturation 94% on room air. HEENT: Head normocephalic. No trauma. PERRLA. Poor dentition. There is a swelling of the left side of her cheek and left neck region with purulent drainage. Cardiovascular: RRR. ABDOMEN: Soft, nontender, nondistended. No hepatosplenomegaly. Obese.Extremities: No edema. No clubbing. No cyanosis. Neurological: The patient is alert and oriented x3. No focal neurological deficits. LABORATORY: WBC 6.8, hemoglobin 12, hematocrit 37.2, platelets 212,000. Sodium 138, potassium 3.8, chloride 98, bicarbonate 28, BUN 9, creatinine 0.5, glucose 96, calcium 8.8. ASSESSMENT AND PLAN: 1. Left masseteric space abscess status post incision and drainage. Continue with antibiotics, Dr. Lucas from Infectious Disease Department is taking care of this patient. She has a positive drainage culture from her mouth that showed Streptococcus constellatus. 2. Morbid obesity. Aware. 3. Hypogammaglob[address]emia. Dr. Lucas from Infectious Disease Department will give immunoglobulin therapy and follow that. 4. Neuropathy. Stable. 5. Deep vein thrombosis prophylaxis. Continue with Lovenox. cc: Luiz Medae MD
--- NOTE | 2017-05-25 15:33 | PROGRESS NOTE ---
DATE: 05/25/2017 PRESENT ILLNESS: The patient is status post surgery for a left facial abscess she also has cellulitis on the left side of her face. The patient also was discovered to have a very low IgG level of approximately 322. MEDICATIONS: Currently, the patient is receiving vancomycin and meropenem. PHYSICAL EXAMINATION: Vital Signs: Temperature is 98.7 degrees, pulse is 83, respiration is 18, blood pressure is 152/88. General: This is a somewhat ill-appearing, middle-aged female. She looks a lot better than she has in previous days. Head eyes ears, nose, and throat: There is less swelling on the left side of her face. There is also left trismus. I was able to look at her tongue and it has a white coating to it. I suspect that the pain the patient is having in her throat and trouble with swallowing and the soreness of her tongue are due to oral candidiasis. The patient's drain is still draining purulent fluid, it does not have an odor. Lungs: Clear to auscultation. Cardiovascular: Regular heart rate. Abdomen: Soft and nontender. LAB AND X-RAY: There is no new x-ray. A repeat of the patient's immunoglobulin levels show that the IgG level was 855 and this is with only getting 20 g of IVIG. Creatinine 0.5. GFR is greater than 60. The culture from the patient's facial wound grew Streptococcus constellatus, subspecies constellatus. ASSESSMENT AND PLAN: The patient has facial cellulitis. The abscess she had is draining. Our plan is to continue with her current antibiotics, and in addition, I have added Mycostatin swish and swallow for the presumed Ruthie oral mucositis as well as involvement of the throat. Our plan is to send the patient home on p.o. Keflex 500 mg every 8 hours, as well as the oral nystatin. The patient on SundayMay [address] Simmons, who performed the patient's surgery. I have requested that the patient see me in the office in 2 weeks. The patient's assessment is he streptococcal facial cellulitis and abscess. She also has an associated low IgG level which now is well in the normal range after getting one infusion of IVIG. Will repeat in some time the patient's IgG level to see if it falls again. COMORBIDITIES: Include breast cancer and also low IgG level. cc: Nixon Lucas MD
[2017-05-25] MEDS: LOVENOX SUBQ SCH (16:08)
[2017-05-26] MEDS: DILAUDID IV PRN ×4 (05:15→21:28)
[2017-05-26] MEDS: VANCOMYCIN 1,500 MG in NS 250 ML IV SCH ×3 (05:17→21:28)
[2017-05-26 05:48] LABS: AGAP 11; BUN 7 mg/dL (8-22); CHLORIDE 101 mmol/L (98-107); COSMO 278; POTASSIUM 4.1 mmol/L (3.5-5.1); SODIUM 140 mmol/L (136-145); TCO2 28 mmol/L (25-35)
[2017-05-26] MEDS: HUMALOG SUBQ SCH ×4 (06:42→21:10)
[2017-05-26] MEDS: MERREM 1 GM in NS 50 ML IV SCH ×2 (08:36→15:34)
[2017-05-26] MEDS: CULTURELLE PO SCH (08:37)
[2017-05-26] MEDS: SODIUM CHLORIDE 0.9% INJ SCH (08:37)
[2017-05-26] MEDS: PEPCID IV SCH ×2 (08:37→21:28)
[2017-05-26] MEDS: MYCOSTATIN SUSP PO SCH ×4 (08:38→21:28)
--- NOTE | 2017-05-26 14:10 | PROGRESS NOTE ---
DATE: 05/26/2017 SUBJECTIVE: This patient is resting comfortably in bed. She feels better. She is still having swelling of the left side of her cheek. She is still feeling some drainage coming out from her mouth and also outside from her wound. She has some discomfort at the level of her throat. OBJECTIVE: Vital Signs: Temperature 98.4 degrees, pulse 74, respiratory rate 24, blood pressure 133/73, oxygen saturation 94% on room air. HEENT: Head normocephalic. No trauma. PERRLA. Poor dentition. She has some whitish lesions inside her mouth. Neck: Supple. No JVD. No masses. Central trachea. There is swelling of the left side of her cheek and left neck region with purulent drainage. Cardiovascular: RRR. Abdomen: Soft, nontender, nondistended. No hepatosplenomegaly. Extremities: No edema. No clubbing. No cyanosis. Neurologic: The patient is alert and oriented x3. No focal neurological deficits. LABORATORY: Sodium 140, potassium 4.1, chloride 101, bicarbonate 28, BUN 7, creatinine 0.5, glucose 102, calcium 9. ASSESSMENT AND PLAN: 1. Left masseteric space abscess, status post incision and drainage. Continue with antibiotics as per Dr. Lucas. The plan is to send this patient home with Keflex and follow up with Dr. Lucas in a couple weeks. Also, she will follow up with her surgeon, , hopefully next Sunday, as well. 2. Oral candidiasis. Continue with Nystatin. 3. Morbid obesity. Aware. 4. Hypogammaglobulinemia. This patient has been getting IV immunoglobulin. The levels are better now. This is going to be monitor by Dr. Lucas. 5. Neuropathy. Stable. 6. Deep vein thrombosis prophylaxis. Continue with Lovenox. cc: Luiz Meade MD
[2017-05-26] MEDS: LOVENOX SUBQ SCH (15:35)
[2017-05-26] MEDS ORDERED: CATHFLO IV ONE (16:30)
[2017-05-26] MEDS ORDERED: STERILE WATER INJ. INJ ONE (16:30)
[2017-05-27] MEDS: MERREM 1 GM in NS 50 ML IV SCH ×3 (01:02→16:50)
[2017-05-27] MEDS: DILAUDID IV PRN ×2 (01:02→05:05)
[2017-05-27] MEDS: VANCOMYCIN 1,500 MG in NS 250 ML IV SCH ×2 (05:05→22:04)
[2017-05-27] MEDS: HUMALOG SUBQ SCH ×4 (06:04→21:44)
[2017-05-27] MEDS: PEPCID IV SCH ×2 (09:11→22:05)
[2017-05-27] MEDS: SODIUM CHLORIDE 0.9% INJ SCH (09:11)
[2017-05-27] MEDS: MYCOSTATIN SUSP PO SCH ×4 (09:11→22:04)
[2017-05-27] MEDS: CULTURELLE PO SCH (09:11)
[2017-05-27] MEDS: NS 1,000 ML IV SCH ×2 (15:05→23:53)
--- NOTE | 2017-05-27 16:41 | PROGRESS NOTE ---
DATE: 05/27/2017 SUBJECTIVE: This patient is resting comfortably in bed. She feels much better, she is still having swelling of the left side of her cheek. She is still feeling some drainage coming out from inside her mouth and also outside from her wound. Throat pain is much better. She is complaining about diarrhea now, I will ask for C. Difficile toxin and antigen to rule out colitis. I will put this patient also on fluids. OBJECTIVE: Vital Signs: temperature 97.7 degrees, pulse 89, respiratory rate 20, blood pressure 153/88, O2 saturation 95% on room air. HEENT: Head normocephalic. No trauma. PERRLA. Poor dentition. She has some whitish lesions inside her mouth. Neck: Supple. No JVD. No masses. Central trachea. There is swelling of the left side of her cheek and left neck region with pooling and drainage. Cardiovascular: Regular rate and rhythm. Abdomen: Soft, nontender, nondistended. No hepatosplenomegaly. Extremities: No edema. No clubbing. No cyanosis. Neurological: The patient is alert and oriented x3. No focal neurological deficits. LABORATORY: No lab work today. ASSESSMENT AND PLAN: 1. Left masseteric space abscess. Status post incision and drainage, continue with antibiotics as per Dr. Lucas. The plan is to send this patient home with Keflex and follow up with Dr. Lucas in a couple of weeks. Also follow with her surgeon, Dr. Simmons hopefully next Sunday. 2. Diarrhea, this is likely related to her infectious process. She has been swallowing pus basically, also she has been on antibiotics. I will ask for C. difficile antigen and toxin. 3. Oral candidiasis. Continue with the statin. 4. Morbid obesity. Aware. 5. Hypogammaglobulinemia. This patient has been getting IV hemoglobin. The levels are better now. This is going to be monitor by Dr. Lucas. 6. Neuropathy, stable. 7. Deep vein thrombosis prophylaxis. Continue with Lovenox. cc: Luiz Meade MD
[2017-05-27] MEDS: LOVENOX SUBQ SCH (16:50)
[2017-05-28] MEDS: MERREM 1 GM in NS 50 ML IV SCH ×2 (00:12→09:13)
[2017-05-28] MEDS: NORCO-5 PO PRN ×2 (03:24→09:12)
[2017-05-28 06:12] LABS: MANUAL DIFF NEEDED? NO
[2017-05-28] MEDS: VANCOMYCIN 1,500 MG in NS 250 ML IV SCH (06:16)
[2017-05-28 06:25] LABS: BASO% 0.6 % (0.0-0.8); EOS# 0.29 X1000 (0.0-0.7); EOS% 3.4 % (0.0-10.0); HEMATOCRIT 39.5 % (37.0-47.0); HEMOGLOBIN 12.7 g/dL (12.0-16.0); IMM GRAN# 0.11 X1000 (0.0-0.04); IMM GRAN% 1.3 % (0.0-0.5); LYMPH# 1.39 X1000 (1.2-3.4); LYMPH% 16.1 % (20.5-51.1); MCH 27.4 PG (27-31); MCHC 32.2 g/dL (33-37); MCV 85.1 FL (81-99); MONO# 1.01 X1000 (0.11-0.59); MONO% 11.7 % (1.7-9.3); MPV 11.7 FL (7.4-10.4); NEUT% 66.9 % (42.2-75.2); PLT 233 X1000 (130-400); RBC 4.64 XMIL (4.2-5.4)
[2017-05-28 06:41] LABS: AGAP 11; BUN 7 mg/dL (8-22); CALCIUM 9.3 mg/dL (8.8-10.2); CHLORIDE 103 mmol/L (98-107); COSMO 276; POTASSIUM 4.1 mmol/L (3.5-5.1); SODIUM 139 mmol/L (136-145); TCO2 25 mmol/L (25-35)
[2017-05-28] MEDS: HUMALOG SUBQ SCH (06:52)
[2017-05-28] MEDS ORDERED: ROBITUSSIN-AC PO PRN (07:29)
[2017-05-28] MEDS ORDERED: ROBITUSSIN-AC PO ONE (07:29)
[2017-05-28] MEDS ORDERED: DUONEB (A & A) INH SCH (07:30)
[2017-05-28 07:34] VITALS: BP 154/88
--- NOTE | 2017-05-28 07:53 | Diag Imaging Result Doc PS360 ---
EXAM: CHEST-PORTABLE HISTORY: SOB TECHNIQUE: AP portable upright at 0735 COMMENT: There is a PICC line on the right with its tip in the superior vena cava. The inspiration is somewhat suboptimal. There is minimal subsegmental atelectasis over the left costophrenic angle region. Otherwise has been no significant change since 05/20/2017. IMPRESSION: Minimal subsegmental atelectasis. Electronically signed by Monico Montes 05/28/2017 7:51 AM
[2017-05-28] MEDS ORDERED: VENTOLIN HFA INH PRN (08:41)
[2017-05-28] MEDS: PEPCID IV SCH (09:12)
[2017-05-28] MEDS: CULTURELLE PO SCH (09:12)
[2017-05-28] MEDS: MYCOSTATIN SUSP PO SCH (09:13)
--- NOTE | 2017-05-28 09:14 | PROGRESS NOTE ---
DATE: 05/28/2017 The patient is status post surgery for a left facial abscess with cellulitis. She also had a low IgG level. She has improved quite a bit and our plan today is to discharge her on Keflex 500 mg p.o. every 8 hours for 2 weeks and to have her make an appointment to see me in the office in 2 weeks as well. In addition, the patient developed oral candidiasis and will be discharged on Mycostatin as well. I will be seeing the patient in the office in 2 weeks at which time I will examine her and get lab as indicated. I plan to repeat her immunoglobulin level to see if it falls again or not. The patient does have breast cancer in addition to having a low IgG g level. Her IgA level was normal. Dr. Simmons drained the patient's abscess and he will be seeing the patient in his office too. cc: Nixon Lucas MD
[2017-05-28] MEDS ORDERED: KEFLEX PO SCH (13:00)
--- NOTE | 2017-05-29 11:58 | DISCHARGE SUMMARY ---
ADMISSION DATE: 05/20/2017 DISCHARGE DATE: 05/28/2017 CONSULTATIONS: Dr. Nixon Lucas with infectious disease. PERTINENT PROCEDURES: 1. Facial bone CT showed suspected cellulitis and early abscess formation involving the medial pterygoid and masseter muscles. 2. Neck CT showed finding suspicious for cellulitis and early abscess formation involving the left masseter and medial pterygoid muscles. 3. I and D of left masseteric space abscess performed by Dr. Alton Simmons. DISCHARGE DIAGNOSES: 1. Left masseteric space abscess, status post incision and drainage. Will continue on oral Keflex for [address] Nixon Lucas back in the office in 2 weeks. 2. Diarrhea, likely related to her infectious process. Patient had been swallowing pus. Clostridium difficile was negative. 3. Oral candidiasis. The patient will continue on Mycostatin. 4. Morbid obesity. Aware. Patient has been educated on diet and exercise. 5. Hypogammaglobulinemia, status post infusions and monitored by juan diego Nettles. 6. Neuropathy, stable. HOSPITAL COURSE: Ms. Fischer is a 52-year-old, female with a history of chronic bronchitis, fibromyalgia, borderline diabetes mellitus. Sent from [facility] with profound left mandibular swelling. She had a tooth extraction done by Dr. Simmons on Sunday. She was given antibiotics and pain medication, and sent home. Since that time, her left lower jaw had been swelling significantly with severe pain. She called Dr. Simmons's office and apparently was told to stop taking medication. It was felt it was an allergic reaction. She went to [facility]. A call was put in to transfer to our facility because of the severity of the swelling. A CT was done and it did not show any abscess. However, it was a noncontrasted CT. The patient did have profound edema to the left lower jaw. She was beginning to complain of mild shortness of breath. A call was put in to Dr. Simmons's office. She was transferred to the ICU. Started on IV steroids for inflammation reduction. A CT with contrast was ordered. She was started on broad-spectrum antibiotics. Consulted Dr. Nixon Lucas with infectious disease. A CT scan of the face did show cellulitis and abscess formation on the left side. Dr. Simmons did take the patient for an I and D of the left masseteric space abscess. The patient's cultures were growing out gram positive cocci. She also had a low IgG level. She was given replacement therapy for this. She did develop oral candidiasis for which she was started on Mycostatin therapy. She also developed some diarrhea and her stool studies were negative. They felt it was likely reactive from her infection. The patient had been swallowing pus. The patient has improved quite a bit. She was discharged home on Keflex 500 mg p.o. every 8 hours for 2 weeks. She will see Dr. Nixon Lucas in his office in 2 weeks. At that time, he will also repeat her IgG level, as well as repeat visit with Dr. Simmons. Vital signs at time of her discharge, temperature is 98.3 degrees, heart rate 75, respirations 17, blood pressure 158/88, O2 is 97% on room air. DISCHARGE DIET: Full liquid. DISCHARGE MEDICATIONS: As per Dr. Maya: 1. Albuterol inhaler 2 puffs inhaled q.6 hours p.r.n. 2. Aspirin 81 mg p.o. daily. 3. BuSpar 15 mg p.o. b.i.d. 4. Caltrate 600 plus D 1 p.o. b.i.d. 5. Keflex 500 mg p.o. q.8 hours. 6. Flexeril 10 mg p.o. t.i.d. p.r.n. 7. Colace 100 mg p.o. b.i.d. 8. Pepcid 20 mg p.o. b.i.d. 9. Gabapentin 300 mg p.o. t.i.d. 10. Robitussin AC 10 mL p.o. q.4-6 hours p.r.n. cough. 11. [place] 7.5/325 one each q.8-12 hours p.r.n. 12. Lactobacillus 1 each p.o. daily. 13. Allergy Relief 10 mg p.o. p.r.n. 14. Antivert 25 mg p.o. p.r.n. 15. Mycostatin suspension 5 mL swish and swallow 4 times a day. 16. Absorbine Juan ES liniment 60 mL . DISCHARGE INSTRUCTIONS: Ms. Fischer is being discharged home with self care. She is to follow up with Dr. Nixon Lucas in 2 weeks, on 06/18/2017 at 8:15 a.m., as well as Dr. Simmons for drain removal. The patient can return to the ED for any worsening of symptoms. Discharge time, 30 minutes. Dictated by CONY Tolliver for Luiz Meade MD cc: MD Karina Bird MD [facility]
== END 2017-05-28 10:06 | disposition home or self-care (01) ==
LOC: DIRADM 10:50 → SUATTDRO 10:50 → 4N 13:09 → ICU 15:49 → 4N 05-22 18:17
PROVIDERS: ATTEND Internal Medicine